=== PATIENT | male | born 1955 | race Caucasian/White ===

== ENCOUNTER 2020-10-07 15:17 | Inpatient (IN) | payer BC ==
[2020-10-07] MEDS ORDERED: HEPARIN SODIUM,PORCINE 5,000 UNIT/ML 1 ML VIAL IV PRN (15:30)
[2020-10-07] MEDS ORDERED: NITROGLYCERIN OINT 1 INCH/GM PACKET TOPICAL STA (15:30)
[2020-10-07] MEDS: HEPARIN SOD,PORK IN 0.45% NACL 25,000 UNIT in 0.45% NACL 1 250ML.BAG IV SCH (15:44)
--- NOTE | 2020-10-07 15:51 | ED ---
Chest Pain HPI - General Chief Complaint: Chest Pain Stated Complaint: TX from another hospital Chest Pain Time Seen by Provider: 10/07/20 15:17 Source: patient, EMS, RN notes reviewed Mode of arrival: EMS Limitations: no limitations - History of Present Illness Initial Comments: Is a 65-year-old male history of type 2 diabetes kidney stones no prior history of heart disease who presented to the [facility] today after experiencing chest pains morning he is found to have left exodeviation right bundle-branch block he was found have initially on the first troponin to be within normal limits however second troponin was elevated 0.051. He was started on heparin and nitroglycerin given aspirin. He was transferred here for further evaluation he currently states he is feeling fine. No nausea vomiting fevers chills sweats or other symptoms. No other modifying factors MD Complaint: chest pain, other - Related Data Allergies Allergy/AdvReac Type Severity Reaction Status Date / Time No Known Allergies Allergy Verified 10/07/20 15:20 Review of Systems ROS Statement: Those systems with pertinent positive or pertinent negative responses have been documented in the HPI. ROS Other: All systems not noted in ROS Statement are negative. EKG Findings - EKG Results: EKG: interpreted by ARLETTE, sinus rhythm (Sinus rhythm a 63. Interval 196 QRS duration 144 daily since QTC 436/446 mg block with anterior fascicular block this is compared with EKG submitted from [facility] showing similar configuration as) Past Medical History Past Medical History: Diabetes Mellitus, Hyperlipidemia Additional Past Medical History / Comment(s): kidney stones History of Any Multi-Drug Resistant Organisms: None Reported Additional Past Surgical History / Comment(s): kidney stones removal Past Psychological History: No Psychological Hx Reported Smoking Status: Current every day smoker Past Alcohol Use History: None Reported Past Drug Use History: None Reported General Exam - General Exam Comments Initial Comments: This is a well-developed well-nourished awake alert oriented 3 male Limitations: no limitations General appearance: alert, in no apparent distress Head exam: Present: atraumatic, normocephalic, normal inspection Eye exam: Present: normal appearance, PERRL, EOMI. Absent: scleral icterus, conjunctival injection, periorbital swelling ENT exam: Present: normal exam, mucous membranes moist Neck exam: Present: normal inspection. Absent: tenderness, meningismus, lymphadenopathy Respiratory exam: Present: normal lung sounds bilaterally. Absent: respiratory distress, wheezes, rales, rhonchi, stridor Cardiovascular Exam: Present: regular rate, normal rhythm, normal heart sounds. Absent: systolic murmur, diastolic murmur, rubs, gallop, clicks GI/Abdominal exam: Present: soft, normal bowel sounds. Absent: distended, tenderness, guarding, rebound, rigid Extremities exam: Present: normal inspection, full ROM, normal capillary refill. Absent: tenderness, pedal edema, joint swelling, calf tenderness Back exam: Present: normal inspection Neurological exam: Present: alert, oriented X3, CN II-XII intact Psychiatric exam: Present: normal affect, normal mood Skin exam: Present: warm, dry, intact, normal color. Absent: rash Course Vital Signs 10/07/20 15:21 Temperature 98.5 F Pulse Rate 64 Respiratory 18 Rate Blood Pressure 146/90 O2 Sat by Pulse 98 Oximetry Chest Pain MDM - MDM I did discuss the findings with Dr. Jett who did see the patient in emergency department patient be admitted with cardiology consultation Disposition Clinical Impression: Non-STEMI (non-ST elevated myocardial infarction), Troponin I above reference range, Chest pain Disposition: ADMITTED IP TO THIS HOSP Condition: Fair Referrals: None,Stated [Primary Care Provider] - 1-2 days
[2020-10-07] MEDS ORDERED: NITROGLYCERIN SL TABS 0.4 MG TAB SUBLINGUAL PRN (16:13)
[2020-10-07] MEDS: SODIUM CHLORIDE 0.9% 1,000 ML IV SCH (16:22)
[2020-10-07 18:14] LABS: Glucose,Whole Blood 121 mg/dL (75-99)
[2020-10-07 20:05] LABS: Glucose,Whole Blood 129 mg/dL (75-99)
[2020-10-07] MEDS: ASPIRIN 81 MG PO SCH (21:56)
[2020-10-07] MEDS ORDERED: ATORVASTATIN 20 MG TAB PO SCH (22:00)
--- NOTE | 2020-10-07 23:12 | P.HPIM ---
History of Present Illness H&P Date: 10/07/20 Chief Complaint: Chest Pain Patient given 65-year-old male with a known history of diabetes type 2 [id number], hyperlipidemia, history of recent prostate biopsy about a month ago, nephrolithiasis and currently everyday smoker initially presented to [facility] with complaints of chest pain mid retrosternal without any radiation. Associated with mild shortness of breath. No nausea vomiting or diaphoresis. Patient was given nitroglycerin without much improvement in pain. Initial troponin was not elevated but subsequently troponin level went up to 0.051. Patient was having continued mild shortness of breath and was transferred to [facility] for evaluation. Patient was started on heparin drip and was given a loading dose of Plavix 3 mg x 1 before transfer. Patient otherwise denied any complaints of fever or chills. No cough or sputum production. Denied any recent exertional dyspnea. No recent illnesses or sick contacts. Patient states that she he does have strong family history of coronary disease in his father and grandfather. Father had AL around age 56 and grandfather of AL at age 55. Patient does smoke on daily basis. Laboratory data from [facility] were reviewed. Troponin 0 0.214 and 0.498 EKG showed right bundle branch block without any ST-T wave changes. No significant change from previous EKG. Review of Systems Constitutional: Patient denies any fever or chills . No generalized weakness or weight loss. Abdomen: Patient denied nausea vomiting and diarrhea and abdominal pain. Cardiovascular: Patient does have chest pain without associated short of breath no palpitations. Respiratory: patient denied any cough or sputum production. No shortness of breath Neurologic: Patient denied any numbness or tingling headache. Musculoskeletal: Patient denies any complaints of joint swelling or deformity. Skin: Negative Psychiatric: Negative Endocrine: No heat or cold intolerance. No recent weight gain. Genitourinary: No dysuria or hematuria. All other 14 point ROS negative except the above Past Medical History Past Medical History: Diabetes Mellitus, Hyperlipidemia Additional Past Medical History / Comment(s): kidney stones History of Any Multi-Drug Resistant Organisms: None Reported Additional Past Surgical History / Comment(s): kidney stones removal, postate biposy 1 month ago- results negative Past Anesthesia/Blood Transfusion Reactions: No Reported Reaction Past Psychological History: No Psychological Hx Reported Smoking Status: Never smoker Past Alcohol Use History: None Reported Past Drug Use History: None Reported Medications and Allergies Home Medications Medication Instructions Recorded Confirmed Type Aspirin [Adult Low Dose Aspirin EC] 81 mg PO HS 10/07/20 10/07/20 History Atorvastatin Calcium [Lipitor] 20 mg PO HS 10/07/20 10/07/20 History Glimepiride [Amaryl] 1 mg PO DAILY 10/07/20 10/07/20 History Multivitamins, Thera [Multivitamin 1 tab PO DAILY 10/07/20 10/07/20 History (formulary)] metFORMIN HCL [Glucophage] 1,000 mg PO BID 10/07/20 10/07/20 History Allergies Allergy/AdvReac Type Severity Reaction Status Date / Time No Known Allergies Allergy Verified 10/07/20 16:28 Physical Exam Vitals: Vital Signs Temp Pulse Pulse Resp BP BP Pulse Ox 10/07/20 21:29 98.1 F 66 18 107/67 94 L 10/07/20 20:00 66 18 10/07/20 19:03 98 F 68 18 112/75 95 10/07/20 17:00 98.3 F 63 18 140/71 96 10/07/20 15:21 98.5 F 64 18 146/90 98 Intake and Output 10/07/20 10/07/20 10/07/20 06:59 14:59 22:59 Output Total 200 Balance -200 Output: Urine 200 Other: Voiding Method Toilet # Voids 1 Weight 107.501 kg PHYSICAL EXAMINATION: Patient is lying in the bed comfortably, no acute distress, awake alert and oriented.. HEENT: Normocephalic. Neck is supple. Pupils reactive. Nostrils clear. Oral cavity is moist. Ears reveal no drainage. Neck reveals no JVD, carotid bruits, or thyromegaly. CHEST EXAMINATION: Trachea is central. Symmetrical expansion. Lung pop clear to auscultation and percussion. CARDIAC: Normal S1, S2 with no gallops. No murmurs ABDOMEN: Soft. Bowel sounds normal. No organomegaly. No abdominal bruits. Extremities: reveal no edema. No clubbing or cyanosis Neurologically awake, alert, oriented x3 with well-coordinated movements. No focal deficits noted Skin: No rash or skin lesions. Psychiatric: Coperative. Nonsuicidal Musculoskeletal: No joint swelling or deformity. Normal range of motion. Results Labs: Abnormal Lab Results - Last 24 Hours (Table) 10/07/20 10/07/20 10/07/20 Range/Units 16:32 18:13 19:35 APTT (22.0-30.0) sec POC Glucose (mg/dL) 121 H (75-99) mg/dL Troponin I 0.214 H* 0.498 H* (0.000-0.034) ng/mL 10/07/20 10/07/20 Range/Units 20:03 21:29 APTT 39.5 H (22.0-30.0) sec POC Glucose (mg/dL) 129 H (75-99) mg/dL Troponin I (0.000-0.034) ng/mL Thrombosis Risk Factor Assmnt - DVT/VTE Prophylaxis DVT/VTE Prophylaxis: Pharmacologic Prophylaxis ordered - Choose All That Apply Any of the Below Risk Factors Present?: Yes Each Factor Represents 1 point: Obesity (BMI >25) Other Risk Factors: Yes Each Risk Factor Represents 2 Points: Age 61-74 years Other congenital or acquired thrombophilia - If yes, enter type in comment: No Thrombosis Risk Factor Assessment Total Risk Factor Score: 3 Thrombosis Risk Factor Assessment Level: Moderate Risk Assessment and Plan Assessment: Acute non-ST elevated AL with elevated troponin level Chest discomfort/tightness. Diabetes type 2 [id number] Hyperlipidemia Family history of coronary artery disease Recent history of prostate biopsy was negative History of nephrolithiasis DVT prophylaxis patient is already on heparin drip Ongoing nicotine addiction Plan: Patient will be continued on telemetry monitoring. Continue with heparin drip. Started on aspirin and atorvastatin. Insulin sliding scale and follow-up closely. Cardiology was consulted and further recommendations based on the clinical course. Smoking cessation has been counseled extensively. Time with Patient: Greater than 30
[2020-10-08 05:55] LABS: Basophils # (A) 0.1 k/uL (0-0.2); Basophils % (A) 1 %; Eosinophils # (A) 0.8 k/uL (0-0.7); Eosinophils % (A) 9 %; HCT 41.5 % (39.0-53.0); Lymphocytes % (A) 40 %; MCH 32.8 pg (25.0-35.0); MCHC 33.7 g/dL (31.0-37.0); MCV 97.4 fL (80.0-100.0); Mean Platelet Volume 7.6; Monocytes # (A) 0.3 k/uL (0-1.0); Monocytes % (A) 3 %; Neutrophils # (A) 4.5 k/uL (1.3-7.7); Neutrophils % (A) 45 %; Platelet Count 235 k/uL (150-450); RBC 4.26 m/uL (4.30-5.90); RDW 12.3 % (11.5-15.5); WBC 9.9 k/uL (3.8-10.6)
[2020-10-08 06:03] LABS: Glucose,Whole Blood 103 mg/dL (75-99)
[2020-10-08] MEDS: INSULIN ASPART (NovoLOG) 100 UNIT/ML VIAL SQ SCH ×4 (06:16→20:38)
[2020-10-08 06:25] LABS: ALT 51 U/L (4-49); AST 44 U/L (17-59); African American GFR (CKD) >90 (>60 ml/min/1.73 sqM); Albumin 3.8 g/dL (3.5-5.0); Alkaline Phosphatase 75 U/L (38-126); Anion Gap 6 mmol/L; Blood Urea Nitrogen 20 mg/dL (9-20); Calcium 9.1 mg/dL (8.4-10.2); Carbon Dioxide 25 mmol/L (22-30); Chloride 103 mmol/L (98-107); Cholesterol 123 mg/dL (<200); Glucose 115 mg/dL (74-99); HDL Cholesterol 44 mg/dL (40-60); LDL Cholesterol,Calculated 43 mg/dL (0-99); Non-African American GFR(CKD) >90 (>60 ml/min/1.73 sqM); Potassium 4.2 mmol/L (3.5-5.1); Sodium 134 mmol/L (137-145); Total Bilirubin 0.7 mg/dL (0.2-1.3); Total Protein 5.9 g/dL (6.3-8.2); Triglycerides 181 mg/dL (<150)
[2020-10-08] MEDS ORDERED: ASPIRIN 325 MG TAB PO SCH (09:00)
[2020-10-08] MEDS ORDERED: ALPRAZolam 0.5 MG TAB PO PRN (09:17)
[2020-10-08] MEDS ORDERED: ASPIRIN 325 MG TAB PO STA (09:17)
[2020-10-08] MEDS ORDERED: ATORVASTATIN 80 MG TAB PO STA (09:17)
[2020-10-08] MEDS ORDERED: NITROGLYCERIN SL TABS 0.4 MG TAB SUBLINGUAL PRN (09:17)
[2020-10-08] MEDS ORDERED: SODIUM CHLORIDE 0.9% 1,000 ML in EMPTY BAG 1 BAG IV ONE (09:17)
[2020-10-08] MEDS ORDERED: ALPRAZolam 0.25 MG TAB PO PRN (09:17)
[2020-10-08] MEDS: METOPROLOL TARTRATE 12.5 MG TAB PO SCH ×2 (09:35→20:37)
[2020-10-08] MEDS ORDERED: HEPARIN SODIUM 1,000 UN/ML (10ML VL) ONE ×2 (10:15→11:41)
[2020-10-08] MEDS ORDERED: LIDOCAINE 1% INJ 10MG/ML (20 ML MDV) ONE (10:15)
[2020-10-08] MEDS ORDERED: VERAPAMIL 2.5 MG/ML 2 ML AMP ONE (10:16)
[2020-10-08] MEDS ORDERED: fentaNYL (PF) 50 MCG/ML 2 ML AMP ONE (10:16)
[2020-10-08] MEDS ORDERED: IV FLUID CONTINUATION 900 ML IV ONE (10:30)
--- NOTE | 2020-10-08 10:38 | ECHOF ---
Referral Reason:chest pain, elevated trop MEASUREMENTS -------- HEIGHT: 172.7 cm WEIGHT: 109.3 kg BP: IVSd: 1.1 cm (0.6 - 1.1) LVIDd: 2.4 cm (3.9 - 5.3) LVPWd: 1.1 cm (0.6 - 1.1) IVSs: 1.4 cm LVIDs: 1.2 cm LVPWs: 1.3 cm Ao Diam: 3.5 cm (2.0 - 3.7) AV Cusp: 2.0 cm (1.5 - 2.6) LA Diam: 2.2 cm (2.7 - 3.8) MV EXCURSION: 13.189 mm (> 18.000) MV EF SLOPE: 77 mm/s (70 - 150) EPSS: 1.4 cm MV E Jose Eduardo: 0.55 m/s MV DecT: 248 ms MV A Jose Eduardo: 0.91 m/s MV E/A Ratio: 0.61 RAP: 5.00 mmHg RVSP: 13.09 mmHg FINDINGS -------- This was a technically adequate study. The left ventricular size is normal. Left ventricular wall thickness is normal. Overall left vent ricular systolic function is normal with, an EF between 55 - 60 %. The diastolic filling pattern is normal for the age of the patient 6.88. The right ventricle is normal in size. The left atrial size is normal. The right atrial size is normal. The aortic valve was not well visualized. There is trace mitral regurgitation. The tricuspid valve appears structurally normal. Trace tricuspid regurgitation present. Right [place] tricular systolic pressure is normal at < 35 mmHg. The pulmonic valve was not well visualized. The aortic root size is normal. Normal inferior vena cava with normal inspiratory collapse consistent with estimated right atrial pre ssure of 5 mmHg. There is no pericardial effusion. CONCLUSIONS -------- 1. The left ventricular size is normal. 2. Left ventricular wall thickness is normal. 3. Overall left ventricular systolic function is normal with, an EF between 55 - 60 %. 4. The diastolic filling pattern is normal for the age of the patient 6.88 5. There is trace mitral regurgitation. 6. Trace tricuspid regurgitation present. 7. There is no pericardial effusion. TORCH STRAIGHTENER: Chary Palm RDCS
[2020-10-08] MEDS: fentaNYL (PF) 50 MCG/ML 2 ML AMP IV ONE ×2 (10:50→12:41)
[2020-10-08] MEDS: MIDAZOLAM 2 MG/2 ML VIAL IV ONE ×3 (10:50→11:39)
[2020-10-08] MEDS ORDERED: LIDOCAINE 1% INJ 10MG/ML (20 ML MDV) SQ ONE (10:51)
[2020-10-08] MEDS ORDERED: VERAPAMIL SYRINGE (5 MG/10 ML) INTRAARTER ONE (10:52)
[2020-10-08] MEDS: HEPARIN SODIUM 1,000 UN/ML (10ML VL) IV ONE ×4 (10:57→12:00)
[2020-10-08] MEDS ORDERED: PRASUGREL 10 MG TAB ONE (11:06)
[2020-10-08] MEDS ORDERED: PRASUGREL 10 MG TAB PO ONE (11:09)
[2020-10-08] MEDS ORDERED: IOPAMIDOL-370 125ML BTL INJ ONE ×2 (11:27→13:16)
[2020-10-08] MEDS ORDERED: MIDAZOLAM 2 MG/2 ML VIAL IV ONE (12:11)
[2020-10-08] MEDS: NITROGLYCERIN 1000MCG/10ML SYRINGE INTRACORON ONE ×2 (12:30→12:46)
[2020-10-08] MEDS ORDERED: niCARdipine 25 MG/10 ML VIAL ONE (12:59)
[2020-10-08] MEDS ORDERED: niCARdipine Syringe (1,000 mcg/10 mL) INTRACORON ONE (13:00)
[2020-10-08] MEDS ORDERED: NITROGLYCERIN-D5W PMX 50 MG in DEXTROSE/WATER 1 250ML.BAG IV SCH (13:30)
[2020-10-08 13:43] LABS: Glucose,Whole Blood 124 mg/dL (75-99)
[2020-10-08] MEDS: SODIUM CHLORIDE 0.9% 1,000 ML IV SCH (14:18)
[2020-10-08 15:06] LABS: Hemoglobin A1C 7.4 % (4.0-6.0)
--- NOTE | 2020-10-08 15:09 | P.CRDCN ---
History of Present Illness Consult date: 10/08/20 History of present illness: CHIEF COMPLAINT: Chest pain HISTORY OF PRESENT ILLNESS: This is a 65-year old male with a past medical history significant for diabetes and hyperlipidemia. Patient does not follow with a flare man. We have been asked to see the patient in consultation for chest pain. Patient states he was driving yesterday around 7:30 in the morning when he began having chest pain. He states the pain was severe for about 15 minutes. He denied any radiation of the pain. Denied any nausea or vomiting. Denied any shortness of breath. He initially went to [facility] where his first troponin was negative. However his second troponin was found to be 0.051. He was transferred to [facility] for further evaluation. Patient states his pain went away once he was transferred to this facility. At the time of examination this morning he is chest pain-free. Patient reports a family history of cardiac disease and states his dad had a heart attack when he was in his 50s and his mom when she was in her early 60s. DIAGNOSTICS: EKG reveals sinus mechanism with right bundle block Laboratory data: W BC 9.9. Hemoglobin 14.0. Platelet count 235. Sodium 134. Potassium 4.2. BUN 20. Creatinine 0.84. Troponin 0.012. 0.051. 0.214. 0.498. Current home cardiac medications include Lipitor 20 mg daily and aspirin 81 mg daily REVIEW OF SYSTEMS: At the time of my exam: CONSTITUTIONAL: Denies fever or chills. HEENT: Denies blurred vision, vision changes, or eye pain. Denies hemoptysis CARDIOVASCULAR: Denies chest pain, orthopnea, PND or palpitations RESPIRATORY: No shortness of breath. GASTROINTESTINAL: Denies abdominal pain. Denies nausea or vomiting. HEMATOLOGIC: Denies bleeding disorders. GENITOURINARY: Denies any blood in urine. SKIN: Denies pruitis. Denies rash. PHYSICAL EXAM: VITAL SIGNS: Reviewed. GENERAL: Well-developed in no acute distress. HEENT: Head is normocephalic. Pupils are equal, round. Sclerae anicteric. Mucous membranes of the mouth are moist. Neck supple. No JVD or thyromegaly LUNGS: Respirations even and unlabored. Lungs essentially clear to auscultation bilaterally. HEART: Regular rate and rhythm. S1 and S2 heard. ABDOMEN: Soft. Nondistended. Nontender. EXTREMITIES: Normal range of motion. No clubbing or cyanosis. Peripheral pulses intact. No lower extremity edema NEUROLOGIC: Awake and alert. Oriented x 3. ASSESSMENT: Non-ST elevated myocardial infarction Hyperlipidemia Diabetes mellitus, type II Family history of coronary artery disease PLAN: Obtain 2-D echo to assess cardiac structure and function Continue IV heparin Begin metoprolol 12.5 mg twice a day Patient to undergo cardiac catheterization today with Dr. Hamilton Further recommendations pending patient's course Nurse practitioner note has been reviewed by physician. Signing provider agrees with the documented findings, assessment, and plan of care. Past Medical History Past Medical History: Diabetes Mellitus, Hyperlipidemia Additional Past Medical History / Comment(s): kidney stones History of Any Multi-Drug Resistant Organisms: None Reported Additional Past Surgical History / Comment(s): kidney stones removal, postate biposy 1 month ago- results negative Past Anesthesia/Blood Transfusion Reactions: No Reported Reaction Past Psychological History: No Psychological Hx Reported Smoking Status: Never smoker Past Alcohol Use History: None Reported Past Drug Use History: None Reported Medications and Allergies Home Medications Medication Instructions Recorded Confirmed Type Aspirin [Adult Low Dose Aspirin EC] 81 mg PO HS 10/07/20 10/07/20 History Atorvastatin Calcium [Lipitor] 20 mg PO HS 10/07/20 10/07/20 History Glimepiride [Amaryl] 1 mg PO DAILY 10/07/20 10/07/20 History Multivitamins, Thera [Multivitamin 1 tab PO DAILY 10/07/20 10/07/20 History (formulary)] metFORMIN HCL [Glucophage] 1,000 mg PO BID 10/07/20 10/07/20 History Allergies Allergy/AdvReac Type Severity Reaction Status Date / Time No Known Allergies Allergy Verified 10/07/20 16:28 Physical Exam Vitals: Vital Signs Temp Pulse Pulse Resp BP BP Pulse Ox 10/08/20 14:18 98.1 F 18 139/75 98 10/08/20 08:00 98.1 F 64 18 119/74 95 10/08/20 03:59 98.1 F 70 18 94/53 95 10/08/20 02:00 64 18 10/08/20 00:00 98.0 F 64 18 100/55 95 10/07/20 21:29 98.1 F 66 18 107/67 94 L 10/07/20 20:00 66 18 10/07/20 19:03 98 F 68 18 112/75 95 10/07/20 17:00 98.3 F 63 18 140/71 96 10/07/20 15:21 98.5 F 64 18 146/90 98 Intake and Output 10/08/20 10/08/20 10/08/20 06:59 14:59 22:59 Intake Total 159.167 301 Balance 159.167 301 Intake: IV 301 Intake, IV Titration 159.167 Amount Heparin Sod,Pork in 0.45% 159.167 NaCl 25,000 unit In 0.45 % NaCl 1 250ml.bag @ 9. 302 UNITS/KG/HR 10 mls/hr IV .Q24H [facility] Rx#: [id number] Other: Voiding Method Toilet # Voids 1 Weight 109.7 kg Results 10/08/20 05:37 10/08/20 05:37 Cardiac Enzymes 10/07/20 10/07/20 10/08/20 Range/Units 16:32 19:35 05:37 AST 44 (17-59) U/L Troponin I 0.214 H* 0.498 H* (0.000-0.034) ng/mL Coagulation 10/07/20 10/08/20 Range/Units 21:29 05:37 APTT 39.5 H 46.2 H (22.0-30.0) sec Lipids 10/08/20 Range/Units 05:37 Triglycerides 181 H (<150) mg/dL Cholesterol 123 (<200) mg/dL HDL Cholesterol 44 (40-60) mg/dL CBC 10/08/20 Range/Units 05:37 WBC 9.9 (3.8-10.6) k/uL RBC 4.26 L (4.30-5.90) m/uL Hgb 14.0 (13.0-17.5) gm/dL Hct 41.5 (39.0-53.0) % Plt Count 235 (150-450) k/uL Comprehensive Metabolic Panel 10/08/20 Range/Units 05:37 Sodium 134 L (137-145) mmol/L Potassium 4.2 (3.5-5.1) mmol/L Chloride 103 (98-107) mmol/L Carbon Dioxide 25 (22-30) mmol/L BUN 20 (9-20) mg/dL Creatinine 0.84 (0.66-1.25) mg/dL Glucose 115 H (74-99) mg/dL Calcium 9.1 (8.4-10.2) mg/dL AST 44 (17-59) U/L ALT 51 H (4-49) U/L Alkaline Phosphatase 75 (38-126) U/L Total Protein 5.9 L (6.3-8.2) g/dL Albumin 3.8 (3.5-5.0) g/dL Current Medications Generic Name Dose Route Start Last Admin Trade Name Freq PRN Reason Stop Dose Admin Alprazolam 0.25 mg 10/08/20 09:17 Alprazolam 0.25 Mg Tab PO Q6HR PRN Mild Anxiety Alprazolam 0.5 mg 10/08/20 09:17 Alprazolam 0.5 Mg Tab PO Q6HR PRN Moderate Anxiety Aspirin 81 mg 10/07/20 22:00 10/07/20 21:56 Aspirin 81 Mg PO 81 mg HS IVET Administration Atorvastatin Calcium 40 mg 10/08/20 21:00 Atorvastatin 40 Mg Tab PO HS IVET Heparin Sodium (Porcine) 0 unit 10/07/20 15:30 Heparin Sodium,Porcine 5,000 Unit/Ml 1 Ml Vial IV PER PROTOCOL PRN Low PTT Protocol Heparin Sodium/Sodium Chloride 250 mls @ 10 mls/hr 10/07/20 15:30 10/08/20 06:13 25,000 unit/ Sodium Chloride IV 11.302 units/kg/hr .Q24H IVET 12.15 mls/hr Titration Protocol 9.302 UNITS/KG/HR Sodium Chloride 1,000 mls @ 20 mls/hr 10/07/20 16:15 10/08/20 14:18 Saline 0.9% IV Not Given .Q24H IVET Sodium Chloride 1,000 ml/ IV 1,000 mls @ 109.7 mls/hr 10/08/20 09:17 10/08/20 11:09 Solution IV 10/08/20 18:23 Not Given .Q9H7M ONE 1 ML/KG/HR Nitroglycerin/Dextrose 50 mg/ 250 mls @ 1.5 mls/hr 10/08/20 13:30 10/08/20 13:25 IV Solution IV 1 mls .Q24H IVET Administration Protocol 5 MCG/MIN Insulin Aspart 0 unit 10/08/20 07:30 10/08/20 11:16 Insulin Aspart (Novolog) 100 Unit/Ml Vial SQ Not Given ACHS [facility] Protocol Metoprolol Tartrate 12.5 mg 10/08/20 09:15 10/08/20 09:35 Metoprolol Tartrate 12.5 Mg Tab PO 12.5 mg BID IVET Administration Nitroglycerin 0.4 mg 10/08/20 09:17 Nitroglycerin Sl Tabs 0.4 Mg Tab SUBLINGUAL Q5M PRN Chest Pain Intake and Output 10/08/20 10/08/20 10/08/20 06:59 14:59 22:59 Intake Total 159.167 301 Balance 159.167 301 Intake: IV 301 Intake, IV Titration 159.167 Amount Heparin Sod,Pork in 0.45% 159.167 NaCl 25,000 unit In 0.45 % NaCl 1 250ml.bag @ 9. 302 UNITS/KG/HR 10 mls/hr IV .Q24H [facility] Rx#: [id number] Other: Voiding Method Toilet # Voids 1 Weight 109.7 kg 10/08/20 05:37 10/08/20 05:37
[2020-10-08 16:56] LABS: Glucose,Whole Blood 218 mg/dL (75-99)
[2020-10-08] MEDS: HEPARIN SOD,PORK IN 0.45% NACL 25,000 UNIT in 0.45% NACL 1 250ML.BAG IV SCH (17:31)
[2020-10-08 20:29] LABS: Glucose,Whole Blood 200 mg/dL (75-99)
[2020-10-08] MEDS: ASPIRIN 81 MG PO SCH (20:37)
[2020-10-08] MEDS: ATORVASTATIN 40 MG TAB PO SCH (20:37)
--- NOTE | 2020-10-08 21:26 | P.PRCINT ---
Percutaneous Coronary Int. - Percutaneous Coronary Intervention Percutaneous Coronary Intervention: PROCEDURES PERFORMED: Left heart catheterization, bilateral coronary angiography, PCI of proximal to mid RCA with overlapping 4.0 x 12mm Xience and 3.5 x 28mm Xience DOMINIQUE, rotation atherectomy of RCA, cutting balloon angioplasty of RCA, IVUS of RCA INDICATION: Non-STEMI HISTORY: Patient is a pleasant 65-year-old male with a history of hypertension, hyperlipidemia and diabetes mellitus who presents secondary to chest pain and was found to have mildly elevated troponins. Therefore heart catheterization was recommended. CONSENT:I have discussed the risks, benefits and alternative therapies for the above-mentioned procedure and for both sedation/analgesia as well as necessary blood product administration, if indicated, as they pertain to this patient. The patient has indicated understanding and acceptance of the risks and procedures discussed. PROCEDURE: After the risks, benefits and alternatives of the above mentioned procedure explained in detail with the patient, informed consent was obtained. Patient was taken to the catheterization lab and prepped and draped in usual fashion. 1% lidocaine was used to anesthetize the right radial artery. A 6- Argentine sheath was placed in the right radial artery using modified Seldinger technique. Left coronary angiography was performed with a 5-Argentine JL 3.5 catheter and right coronary angiography was performed with a 5-Argentine FR5 catheter in various views. The FR5 catheter had been advanced into the LV and pressure measurements were taken. Patient was noted to have small caliber ostial diagonal 80% stenosis as well as apical LAD 95% stenosis however the proximal RCA was felt to be the culprit lesion. Therefore the decision was made to intervene on the RCA. Heparin was given for an ACT over 250. The RCA was engaged with a 6 Argentine AL 0.75 guide. A 0.014 BMW guidewire was advanced into the distal vessel. There was a more proximal 80% stenosis however diffuse 50-70% stenosis of the proximal to midportion. Therefore the decision was made to treat the whole lesion. Balloon angioplasty was performed serially with a 2.5 mm, 3.0, 3.5 mm balloon with the help of a Guideliner. There was a mid RCA lesion that was undilatable and a 3.0 x 10mm Angiosculpt balloon was used and then a 4.0 x 8 mm noncompliant balloon was attempted with continued dog boning despite high pressure inflations. Therefore the decision was made to perform atherectomy. The 0.014 BMW was exchanged for a CSI Viper Flex coronary wire by a microcatheter and trapping technique. CSI rotational atherectomy was performed with at low and high speed for a total of 4 passes. Patient did develop some chest pain after atherectomy, likely a component of microembolization. Balloon angioplasty was performed with the 4.0 x 8mm NC balloon to high atmospheres with good dilation of the lesion. Next a 3.5 x 28mm Xience DOMINIQUE was placed from the proximal to mid lesion and then a 4.0 x 12mm Xience DOMINIQUE was placed overlapping more proximally. Both stents were post dilated with a 4.0 NC balloon. Intracoronary nitroglycerin and Nicardipene was given due to chest pain. Additionally IVUS of the RCA was then performed which showed excellent stent apposition, reference vessel approximately 4.0mm proximally and diffuse heavily calcifed disease more distal to the stent but only resulting in an approximately 30% stenosis and without any dissection. The wire was pulled and final angiograms were performed. Pre intervention there was 80% stenosis and IMANI 3 flow and post intervention there was 0% residual stenosis and IMANI 3 flow. Patient was was still having chest pa in and therefore the FL 3.5 catheter was advanced and left coronary angiography was then repeated which showed unchanged images. Chest pain was felt related to microembolization and EKG showed no significant changes. Patient was placed on nitro drip. The right radial sheath was removed and a TR band was placed with hemostasis achieved. The patient tolerated the procedure. Patient was transported back to the post catheterization holding area in stable condition. Conscious Sedation: Patient was monitored under the direct supervision of vision of myself for conscious sedation using Versed and morphine for a total duration of 2 hrs 24 minutes HEMODYNAMICS: Ao: 104/55 LV: 107/3 LVEDP 16 SELECTIVE CORONARY ARTERIOGRAPHY: LEFT MAIN: The left main is a large caliber vessel which trifurcates into the LAD, ramus and circumflex. There is no significant stenosis. LEFT ANTERIOR DESCENDING CORONARY ARTERY: LAD is a large caliber vessel which wraps around to the apex. There is a focal mid LAD calcified 50% stenosis. Diagonal 1 has a proximal 60% stenosis. There is a origin 80% stenosis of a small caliber diagonal 2 branch. There is an apical LAD 95% stenosis. Otherwise the LAD has mild luminal irregularities. RAMUS INTERMEDIUS: The ramus is a moderate to large caliber vessel without significant stenosis. LEFT CIRCUMFLEX CORONARY ARTERY: Left circumflex is a moderate caliber vessel. There are mild luminal irregularities of the circumflex and 2 moderate caliber OM branches. RIGHT CORONARY ARTERY: The right coronary artery is a large caliber vessel which gives off a PDA and PLV branch and is the dominant vessel. There is a proximal to mid RCA approximately 40mm heavily calcified 50-80% stenosis. At the proximal portion of the lesion there is a 80% stenosis which appears somewhat hazy. FINAL IMPRESSION: 1. CAD as described above including mid LAD 50% stenosis, small caliber diagonal 2 origin 80% stenosis, apical LAD 95% stenosis. 2. Successful PCI of proximal to mid RCA with overlapping 4.0 x 12mm Xience and 3.5 x 28mm Xience DOMINIQUE with rotational atherectomy 3. Non-STEMI with culprit RCA PLAN: 1. Aggressive risk factor modification per most recent ACC/AHA guidelines. 2. Continue Nitroglycerin drip for chest pain likely related to microembolization. 3. Continue dual antiplatelets for 12 months. 4. Would treat small caliber diagonal 1 branch and apical LAD medically. If patient has recurrent angina could consider functional assessment of mid LAD lesion however does not appear obstructive angiographically.
[2020-10-09 06:24] LABS: Glucose,Whole Blood 163 mg/dL (75-99)
[2020-10-09] MEDS: INSULIN ASPART (NovoLOG) 100 UNIT/ML VIAL SQ SCH ×4 (06:31→20:21)
[2020-10-09 08:15] LABS: Basophils # (A) 0.1 k/uL (0-0.2); Basophils % (A) 1 %; Eosinophils # (A) 0.3 k/uL (0-0.7); Eosinophils % (A) 3 %; Lymphocytes # (A) 2.7 k/uL (1.0-4.8); Lymphocytes % (A) 24 %; MCH 33.1 pg (25.0-35.0); MCV 97.4 fL (80.0-100.0); Mean Platelet Volume 7.8; Monocytes # (A) 0.5 k/uL (0-1.0); Monocytes % (A) 5 %; Neutrophils # (A) 7.4 k/uL (1.3-7.7); Neutrophils % (A) 67 %; Platelet Count 224 k/uL (150-450); RBC 4.21 m/uL (4.30-5.90); RDW 12.3 % (11.5-15.5)
[2020-10-09 09:15] LABS: African American GFR (CKD) >90 (>60 ml/min/1.73 sqM); Anion Gap 8 mmol/L; Blood Urea Nitrogen 15 mg/dL (9-20); Carbon Dioxide 22 mmol/L (22-30); Chloride 105 mmol/L (98-107); Glucose 212 mg/dL (74-99); Non-African American GFR(CKD) >90 (>60 ml/min/1.73 sqM); Potassium 4.1 mmol/L (3.5-5.1); Sodium 135 mmol/L (137-145)
[2020-10-09] MEDS: METOPROLOL TARTRATE 12.5 MG TAB PO SCH ×2 (09:51→20:27)
[2020-10-09] MEDS: PRASUGREL 10 MG TAB PO SCH (09:52)
[2020-10-09 12:03] LABS: Glucose,Whole Blood 144 mg/dL (75-99)
--- NOTE | 2020-10-09 14:52 | P.PN ---
Subjective Progress Note Date: 10/09/20 CHIEF COMPLAINT: Chest pain HISTORY OF PRESENT ILLNESS: Patient is status post cardiac catheterization with Dr. Hamilton revealing coronary artery disease with mid LAD 50% stenosis, diagonal 2 origin 80% stenosis, and apical LAD 95% stenosis. Patient had PCI of proximal to mid RCA with overlapping stents with rotational arthrectomy. Patient denies chest pain or pressure. Denies shortness of breath. He remains on IV heparin and IV nitro. Vital signs are stable. PHYSICAL EXAM: VITAL SIGNS: Reviewed. GENERAL: Well-developed in no acute distress. HEENT: Head is normocephalic. Pupils are equal, round. Sclerae anicteric. Mucous membranes of the mouth are moist. Neck supple. No JVD or thyromegaly LUNGS: Respirations even and unlabored. Lungs essentially clear to auscultation bilaterally. HEART: Regular rate and rhythm. S1 and S2 heard. ABDOMEN: Soft. Nondistended. Nontender. EXTREMITIES: Normal range of motion. No clubbing or cyanosis. Peripheral pulses intact. No lower extremity edema. Cath site clean dry and intact with pulse present. NEUROLOGIC: Awake and alert. Oriented x 3. ASSESSMENT: Non-ST elevated myocardial infarction, status post cardiac cath revealing CAD with stent placement to RCA Hyperlipidemia Diabetes mellitus, type II Family history of coronary artery disease PLAN: Continue current cardiac medications Discontinue IV heparin and IV nitro Anticipate discharge home tomorrow if patient remains stable Nurse practitioner note has been reviewed by physician. Signing provider agrees with the documented findings, assessment, and plan of care. Objective - Vital Signs Vital signs: Vital Signs Temp 98.0 F 10/09/20 12:00 Pulse 71 10/09/20 12:00 Resp 18 10/09/20 12:00 BP 143/78 10/09/20 12:00 Pulse Ox 98 10/09/20 12:00 Intake & Output 10/08/20 10/09/20 10/09/20 18:59 06:59 18:59 Intake Total 781 10 240 Balance 781 10 240 Weight 110 kg Intake: IV 301 Intake, IV Titration 10 Amount Nitroglycerin-D5w Pmx 50 10 mg In Dextrose/Water 1 250ml.bag @ 5 MCG/MIN 1.5 mls/hr IV .Q24H [facility] Rx#: [id number] Oral 480 240 Other: Voiding Method Toilet # Voids 1 1 - Labs CBC & Chem 7: 10/09/20 07:45 10/09/20 07:45 Labs: Abnormal Lab Results - Last 24 Hours (Table) 10/08/20 10/08/20 10/08/20 Range/Units 05:37 16:55 20:28 WBC (3.8-10.6) k/uL RBC (4.30-5.90) m/uL APTT (22.0-30.0) sec Sodium (137-145) mmol/L Glucose (74-99) mg/dL POC Glucose (mg/dL) 218 H 200 H (75-99) mg/dL Hemoglobin A1c 7.4 H (4.0-6.0) % 10/09/20 10/09/20 10/09/20 Range/Units 06:23 07:45 07:45 WBC 11.0 H (3.8-10.6) k/uL RBC 4.21 L (4.30-5.90) m/uL APTT 55.5 H (22.0-30.0) sec Sodium (137-145) mmol/L Glucose (74-99) mg/dL POC Glucose (mg/dL) 163 H (75-99) mg/dL Hemoglobin A1c (4.0-6.0) % 10/09/20 10/09/20 Range/Units 07:45 11:49 WBC (3.8-10.6) k/uL RBC (4.30-5.90) m/uL APTT (22.0-30.0) sec Sodium 135 L (137-145) mmol/L Glucose 212 H (74-99) mg/dL POC Glucose (mg/dL) 144 H (75-99) mg/dL Hemoglobin A1c (4.0-6.0) %
[2020-10-09] MEDS: SODIUM CHLORIDE 0.9% 1,000 ML IV SCH (15:51)
[2020-10-09 16:37] LABS: Glucose,Whole Blood 187 mg/dL (75-99)
[2020-10-09 20:04] LABS: Glucose,Whole Blood 140 mg/dL (75-99)
[2020-10-09] MEDS: ASPIRIN 81 MG PO SCH (20:27)
[2020-10-09] MEDS: ATORVASTATIN 40 MG TAB PO SCH (20:28)
[2020-10-10 06:10] LABS: Glucose,Whole Blood 141 mg/dL (75-99)
[2020-10-10] MEDS: INSULIN ASPART (NovoLOG) 100 UNIT/ML VIAL SQ SCH ×2 (06:17→12:07)
[2020-10-10 08:00] LABS: Basophils # (A) 0.1 k/uL (0-0.2); Basophils % (A) 1 %; Eosinophils # (A) 0.5 k/uL (0-0.7); Eosinophils % (A) 5 %; HCT 45.4 % (39.0-53.0); HGB 15.3 gm/dL (13.0-17.5); Lymphocytes # (A) 2.6 k/uL (1.0-4.8); Lymphocytes % (A) 26 %; MCH 32.8 pg (25.0-35.0); MCHC 33.7 g/dL (31.0-37.0); MCV 97.3 fL (80.0-100.0); Mean Platelet Volume 7.3; Monocytes # (A) 0.5 k/uL (0-1.0); Monocytes % (A) 5 %; Neutrophils # (A) 6.4 k/uL (1.3-7.7); Neutrophils % (A) 63 %; Platelet Count 226 k/uL (150-450); RBC 4.67 m/uL (4.30-5.90); RDW 12.3 % (11.5-15.5); WBC 10.2 k/uL (3.8-10.6)
[2020-10-10] MEDS: METOPROLOL TARTRATE 12.5 MG TAB PO SCH (08:33)
[2020-10-10] MEDS: PRASUGREL 10 MG TAB PO SCH (08:33)
[2020-10-10 11:42] LABS: Glucose,Whole Blood 147 mg/dL (75-99)
--- NOTE | 2020-10-10 11:47 | P.PN ---
Subjective Progress Note Date: 10/08/20 Principal diagnosis: Non-ST elevated MD status post stent placement Patient given 65-year-old male with a known history of diabetes type 2 [id number]-tfvzkqwwe, hyperlipidemia, history of recent prostate biopsy about a month ago, nephrolithiasis and currently everyday smoker initially presented to [facility] with complaints of chest pain mid retrosternal without any radiation. Associated with mild shortness of breath. No nausea vomiting or diaphoresis. Patient was given nitroglycerin without much improvement in pain. Initial troponin was not elevated but subsequently troponin level went up to 0.051. Patient was having continued mild shortness of breath and was transferred to [facility] for evaluation. Patient was started on heparin drip and was given a loading dose of Plavix 3 mg x 1 before transfer. Patient otherwise denied any complaints of fever or chills. No cough or sputum production. Denied any recent exertional dyspnea. No recent illnesses or sick contacts. Patient states that she he does have strong family history of coronary disease in his father and grandfather. Father had MD around age 56 and grandfather of MD at age 55. Patient does smoke on daily basis. Laboratory data from [facility] were reviewed. Troponin 0 0.214 and 0.498 EKG showed right bundle branch block without any ST-T wave changes. No significant change from previous EKG. 10/09/2020 Patient is currently resting in the bed comfortably. No complaints of chest pain. Feels better. No nausea vomiting or abdominal pain or diarrhea. Patient is status post successful PCI of proximal to mid RCA. Continue with aggressive risk factor modification. Cardiology is on board. Currently on aspirin and prasugrel. Cardiac cath showed FINAL IMPRESSION: 1. CAD as described above including mid LAD 50% stenosis, small caliber diagon al 2 origin 80% stenosis, apical LAD 95% stenosis. 2. Successful PCI of proximal to mid RCA with overlapping 4.0 x 12mm Xience and 3.5 x 28mm Xience DOMINIQUE with rotational atherectomy 3. Non-STEMI with culprit RCA Current medications reviewed. Objective - Vital Signs Vital signs: Vital Signs Temp 98.1 F 10/08/20 14:18 Pulse 64 10/08/20 08:00 Resp 18 10/08/20 14:18 BP 139/75 10/08/20 14:18 Pulse Ox 98 10/08/20 14:18 Intake & Output 10/07/20 10/08/20 10/08/20 18:59 06:59 18:59 Intake Total 159.167 301 Output Total 200 Balance -40.833 301 Weight 107.501 kg 109.7 kg Intake: IV 301 Intake, IV Titration 159.167 Amount Heparin Sod,Pork in 0.45% 159.167 NaCl 25,000 unit In 0.45 % NaCl 1 250ml.bag @ 9. 302 UNITS/KG/HR 10 mls/hr IV .Q24H [facility] [place] Rx#: [id number] Output: Urine 200 Other: Voiding Method Toilet # Voids 1 - Exam PHYSICAL EXAMINATION: Patient is lying in the bed comfortably, no acute distress, awake alert and oriented.. HEENT: Normocephalic. Neck is supple. Pupils reactive. Nostrils clear. Oral cavity is moist. Ears reveal no drainage. Neck reveals no JVD, carotid bruits, or thyromegaly. CHEST EXAMINATION: Trachea is central. Symmetrical expansion. Lung pop clear to auscultation and percussion. CARDIAC: Normal S1, S2 with no gallops. No murmurs ABDOMEN: Soft. Bowel sounds normal. No organomegaly. No abdominal bruits. Extremities: reveal no edema. No clubbing or cyanosis Neurologically awake, alert, oriented x3 with well-coordinated movements. No focal deficits noted Skin: No rash or skin lesions. Psychiatric: Coperative. Nonsuicidal Musculoskeletal: No joint swelling or deformity. Normal range of motion. - Labs CBC & Chem 7: 10/10/20 07:14 10/09/20 07:45 Labs: Abnormal Lab Results - Last 24 Hours (Table) 10/07/20 10/07/20 10/07/20 Range/Units 16:32 18:13 19:35 RBC (4.30-5.90) m/uL Eosinophils # (0-0.7) k/uL APTT (22.0-30.0) sec Sodium (137-145) mmol/L Glucose (74-99) mg/dL POC Glucose (mg/dL) 121 H (75-99) mg/dL Hemoglobin A1c (4.0-6.0) % ALT (4-49) U/L Troponin I 0.214 H* 0.498 H* (0.000-0.034) ng/mL Total Protein (6.3-8.2) g/dL Triglycerides (<150) mg/dL 10/07/20 10/07/20 10/08/20 Range/Units 20:03 21:29 05:37 RBC 4.26 L (4.30-5.90) m/uL Eosinophils # 0.8 H (0-0.7) k/uL APTT 39.5 H (22.0-30.0) sec Sodium (137-145) mmol/L Glucose (74-99) mg/dL POC Glucose (mg/dL) 129 H (75-99) mg/dL Hemoglobin A1c (4.0-6.0) % ALT (4-49) U/L Troponin I (0.000-0.034) ng/mL Total Protein (6.3-8.2) g/dL Triglycerides (<150) mg/dL 10/08/20 10/08/20 10/08/20 Range/Units 05:37 05:37 05:37 RBC (4.30-5.90) m/uL Eosinophils # (0-0.7) k/uL APTT 46.2 H (22.0-30.0) sec Sodium 134 L (137-145) mmol/L Glucose 115 H (74-99) mg/dL POC Glucose (mg/dL) (75-99) mg/dL Hemoglobin A1c 7.4 H (4.0-6.0) % ALT 51 H (4-49) U/L Troponin I (0.000-0.034) ng/mL Total Protein 5.9 L (6.3-8.2) g/dL Triglycerides 181 H (<150) mg/dL 10/08/20 10/08/20 Range/Units 06:02 13:41 RBC (4.30-5.90) m/uL Eosinophils # (0-0.7) k/uL APTT (22.0-30.0) sec Sodium (137-145) mmol/L Glucose (74-99) mg/dL POC Glucose (mg/dL) 103 H 124 H (75-99) mg/dL Hemoglobin A1c (4.0-6.0) % ALT (4-49) U/L Troponin I (0.000-0.034) ng/mL Total Protein (6.3-8.2) g/dL Triglycerides (<150) mg/dL Assessment and Plan Assessment: Acute non-ST elevated MD with elevated troponin level. Status post stent placement to mid RCA Chest discomfort/tightness. Diabetes type 2 [id number] Hyperlipidemia Family history of coronary artery disease Recent history of prostate biopsy was negative History of nephrolithiasis DVT prophylaxis patient is already on heparin drip Ongoing nicotine addiction Plan: Patient will be continued on telemetry monitoring. Patient was started on dual antiplatelet therapy.. Started on aspirin and atorvastatin. Insulin sliding scale and follow-up closely. Cardiology is following. Monitor in the 24 hours.. Smoking cessation has been counseled extensively.
--- NOTE | 2020-10-10 11:49 | P.PN ---
Subjective Progress Note Date: 10/09/20 Principal diagnosis: Non-ST elevated NM status post stent placement Patient given 65-year-old male with a known history of diabetes type 2 [id number], hyperlipidemia, history of recent prostate biopsy about a month ago, nephrolithiasis and currently everyday smoker initially presented to [facility] with complaints of chest pain mid retrosternal without any radiation. Associated with mild shortness of breath. No nausea vomiting or diaphoresis. Patient was given nitroglycerin without much improvement in pain. Initial troponin was not elevated but subsequently troponin level went up to 0.051. Patient was having continued mild shortness of breath and was transferred to [facility] for evaluation. Patient was started on heparin drip and was given a loading dose of Plavix 3 mg x 1 before transfer. Patient otherwise denied any complaints of fever or chills. No cough or sputum production. Denied any recent exertional dyspnea. No recent illnesses or sick contacts. Patient states that she he does have strong family history of coronary disease in his father and grandfather. Father had NM around age 56 and grandfather of NM at age 55. Patient does smoke on daily basis. Laboratory data from [facility] were reviewed. Troponin 0 0.214 and 0.498 EKG showed right bundle branch block without any ST-T wave changes. No significant change from previous EKG. 10/08/2020 Patient is currently resting in the bed comfortably. No complaints of chest pain. Feels better. No nausea vomiting or abdominal pain or diarrhea. Patient is status post successful PCI of proximal to mid RCA. Continue with aggressive risk factor modification. Cardiology is on board. Currently on aspirin and prasugrel. Cardiac cath showed FINAL IMPRESSION: 1. CAD as described above including mid LAD 50% stenosis, small caliber diagon al 2 origin 80% stenosis, apical LAD 95% stenosis. 2. Successful PCI of proximal to mid RCA with overlapping 4.0 x 12mm Xience and 3.5 x 28mm Xience DOMINIQUE with rotational atherectomy 3. Non-STEMI with culprit RCA 10/09/2020 Patient is currently resting in bed comfortably. No complaints of chest pain. No commerce of shortness of breath. Continued On IV heparin. Cardiology is on board. Patient is also on dual antiplatelet therapy. Current medications reviewed. Objective - Vital Signs Vital signs: Vital Signs Temp 98.0 F 12/17/20 12:00 Pulse 71 10/09/20 12:00 Resp 18 10/09/20 12:00 BP 143/78 10/09/20 12:00 Pulse Ox 98 10/09/20 12:00 Intake & Output 10/08/20 10/09/20 10/09/20 18:59 06:59 18:59 Intake Total 781 10 240 Balance 781 10 240 Weight 110 kg Intake: IV 301 Intake, IV Titration 10 Amount Nitroglycerin-D5w Pmx 50 10 mg In Dextrose/Water 1 250ml.bag @ 5 MCG/MIN 1.5 mls/hr IV .Q24H [facility] Rx#: [id number] Oral 480 240 Other: Voiding Method Toilet # Voids 1 1 - Exam PHYSICAL EXAMINATION: Patient is lying in the bed comfortably, no acute distress, awake alert and oriented.. HEENT: Normocephalic. Neck is supple. Pupils reactive. Nostrils clear. Oral cav ity is moist. Ears reveal no drainage. Neck reveals no JVD, carotid bruits, or thyromegaly. CHEST EXAMINATION: Trachea is central. Symmetrical expansion. Lung pop clear to auscultation and percussion. CARDIAC: Normal S1, S2 with no gallops. No murmurs ABDOMEN: Soft. Bowel sounds normal. No organomegaly. No abdominal bruits. Extremities: reveal no edema. No clubbing or cyanosis Neurologically awake, alert, oriented x3 with well-coordinated movements. No focal deficits noted Skin: No rash or skin lesions. Psychiatric: Coperative. Nonsuicidal Musculoskeletal: No joint swelling or deformity. Normal range of motion. - Labs CBC & Chem 7: 10/10/20 07:14 10/09/20 07:45 Labs: Abnormal Lab Results - Last 24 Hours (Table) 10/08/20 10/08/20 10/08/20 Range/Units 05:37 16:55 20:28 WBC (3.8-10.6) k/uL RBC (4.30-5.90) m/uL APTT (22.0-30.0) sec Sodium (137-145) mmol/L Glucose (74-99) mg/dL POC Glucose (mg/dL) 218 H 200 H (75-99) mg/dL Hemoglobin A1c 7.4 H (4.0-6.0) % 10/09/20 10/09/20 10/09/20 Range/Units 06:23 07:45 07:45 WBC 11.0 H (3.8-10.6) k/uL RBC 4.21 L (4.30-5.90) m/uL APTT 55.5 H (22.0-30.0) sec Sodium (137-145) mmol/L Glucose (74-99) mg/dL POC Glucose (mg/dL) 163 H (75-99) mg/dL Hemoglobin A1c (4.0-6.0) % 10/09/20 10/09/20 Range/Units 07:45 11:49 WBC (3.8-10.6) k/uL RBC (4.30-5.90) m/uL APTT (22.0-30.0) sec Sodium 135 L (137-145) mmol/L Glucose 212 H (74-99) mg/dL POC Glucose (mg/dL) 144 H (75-99) mg/dL Hemoglobin A1c (4.0-6.0) % Assessment and Plan Assessment: Acute non-ST elevated NM with elevated troponin level. Status post stent placement to mid RCA Chest discomfort/tightness. Diabetes type 2 apn-nptllaj-imrmpomtk Hyperlipidemia Family history of coronary artery disease Recent history of prostate biopsy was negative History of nephrolithiasis DVT prophylaxis patient is already on heparin drip Ongoing nicotine addiction Plan: Patient will be continued on telemetry monitoring. Patient was started on dual antiplatelet therapy.. Started on aspirin and atorvastatin. Insulin sliding scale and follow-up closely. Cardiology is following. Monitor in the 24 hours.. Smoking cessation has been counseled extensively.
[2020-10-10 13:10] VITALS: BP 131/78; PULSE 85; RESP 16; TEMP 97.9
--- NOTE | 2020-10-10 14:52 | P.PN ---
Subjective Progress Note Date: 10/10/20 CHIEF COMPLAINT: Chest pain HISTORY OF PRESENT ILLNESS: Patient is status post cardiac catheterization with Dr. Hamilton revealing coronary artery disease with mid LAD 50% stenosis, diagonal 2 origin 80% stenosis, and apical LAD 95% stenosis. Patient had PCI of proximal to mid RCA with overlapping stents with rotational arthrectomy. Patient denies chest pain or pressure. Denies shortness of breath. Vital signs are stable. He is anxious to be discharged home today. PHYSICAL EXAM: VITAL SIGNS: Reviewed. GENERAL: Well-developed in no acute distress. HEENT: Head is normocephalic. Pupils are equal, round. Sclerae anicteric. Mucous membranes of the mouth are moist. Neck supple. No JVD or thyromegaly LUNGS: Respirations even and unlabored. Lungs essentially clear to auscultation bilaterally. HEART: Regular rate and rhythm. S1 and S2 heard. ABDOMEN: Soft. Nondistended. Nontender. EXTREMITIES: Normal range of motion. No clubbing or cyanosis. Peripheral pulses intact. No lower extremity edema. Cath site clean dry and intact with pulse present. NEUROLOGIC: Awake and alert. Oriented x 3. ASSESSMENT: Non-ST elevated myocardial infarction, status post cardiac cath revealing CAD with stent placement to RCA Hyperlipidemia Diabetes mellitus, type II Family history of coronary artery disease PLAN: Continue current cardiac medications Patient may be discharged home today from a cardiac perspective. Patient does not live locally. Patient was encouraged to contact his primary care physician and obtain a referral for a endoscopy rn near his home. Patient was instructed he needs to follow up with a endoscopy rn within 1 week. Patient verbalized understanding. Nurse practitioner note has been reviewed by physician. Signing provider agrees with the documented findings, assessment, and plan of care. Objective - Vital Signs Vital signs: Vital Signs Temp 97.9 F 10/10/20 12:00 Pulse 85 10/10/20 12:00 Resp 16 10/10/20 12:00 BP 131/78 10/10/20 12:00 Pulse Ox 96 10/10/20 12:00 Intake & Output 10/09/20 10/10/20 10/10/20 18:59 06:59 18:59 Intake Total 860 476 Balance 860 476 Weight 107.9 kg Intake: Intake, IV Titration 30 Amount Nitroglycerin-D5w Pmx 50 30 mg In Dextrose/Water 1 250ml.bag @ 5 MCG/MIN 1.5 mls/hr IV .Q24H [facility] Rx#: [id number] Oral 830 476 Other: Voiding Method Toilet # Voids 1 1 - Labs CBC & Chem 7: 10/10/20 07:14 10/09/20 07:45 Labs: Abnormal Lab Results - Last 24 Hours (Table) 10/09/20 10/09/20 10/10/20 Range/Units 16:33 20:01 06:08 POC Glucose (mg/dL) 187 H 140 H 141 H (75-99) mg/dL 10/10/20 Range/Units 11:40 POC Glucose (mg/dL) 147 H (75-99) mg/dL
== END 2020-10-10 13:51 | disposition home or self-care (01) | DRG 247 ==
LOC: EC 15:17 → 3SCARD 16:13
PROVIDERS: ADMIT Internal Medicine; ATTEND Internal Medicine
PROC: 4A023N7 Measurement of Cardiac Sampling and Pressure, Left Heart, Percutaneous Approach (ICD-10-PCS; principal; 2020-10-08 14:50)
PROC: 02C03ZZ Extirpation of Matter from Coronary Artery, One Artery, Percutaneous Approach (ICD-10-PCS; principal; 2020-10-08 14:50)
PROC: B240ZZ3 Ultrasonography of Single Coronary Artery, Intravascular (ICD-10-PCS; principal; 2020-10-08 14:50)
PROC: B2111ZZ Fluoroscopy of Multiple Coronary Arteries using Low Osmolar Contrast (ICD-10-PCS; principal; 2020-10-08 14:50)
PROC: 027035Z Dilation of Coronary Artery, One Artery with Two Drug-eluting Intraluminal Devices, Percutaneous Approach (ICD-10-PCS; principal; 2020-10-08 14:50)
DX: I21.4 Non-ST elevation (NSTEMI) myocardial infarction (principal); E11.9 Type 2 diabetes mellitus without complications; E78.5 Hyperlipidemia, unspecified; F17.200 Nicotine dependence, unspecified, uncomplicated; I25.10 Atherosclerotic heart disease of native coronary artery without angina pectoris; I45.10 Unspecified right bundle-branch block; Z79.82 Long term (current) use of aspirin; Z79.899 Other long term (current) drug therapy; Z79.84 Long term (current) use of oral hypoglycemic drugs; Z87.442 Personal history of urinary calculi; Z98.890 Other specified postprocedural states; Z82.49 Family history of ischemic heart disease and other diseases of the circulatory system
CPT/HCPCS: 80048; 80053; 80061; 83036; 84443; 84484; 85025; 85730; 92978; 93005; 93306; 93458; 96365; 96366; 99285